=== PATIENT | male | born 1995 | race Caucasian/White ===

== ENCOUNTER 2019-08-02 07:58 | Emergency (ER) | payer OTHER ==
[~2019-08-02] VITALS: Ht 172.7 cm; Wt 113.4 kg
== END 2019-08-02 08:41 | disposition home or self-care (01) ==
LOC: ED 07:58
DX: S93.402A Sprain of unspecified ligament of left ankle, initial encounter (principal); F17.200 Nicotine dependence, unspecified, uncomplicated; X58.XXXA Exposure to other specified factors, initial encounter
CPT/HCPCS: 73610; 99283

== ENCOUNTER 2023-09-21 14:43 | Emergency (ER) | payer OTHER ==
[~2023-09-21] VITALS: Ht 172.7 cm; Wt 121.8 kg
[2023-09-21 16:09] LABS: INFLUENZA B NAA NEGATIVE (NEGATIVE); RESPIRATORY SYNCYTIAL VIR NAA NEGATIVE (NEGATIVE)
[2023-09-21] MEDS ORDERED: DIPHENOXYLATE/ATROPINE 1 EA TAB PO ONE ×2 (19:30→20:15)
[2023-09-21] MEDS ORDERED: ondansetron HCL 4 MG/2 ML VIAL IV ONE (19:30)
[2023-09-21] MEDS ORDERED: LACTATED RINGER'S 1,000 ML IV ONE (19:30)
[2023-09-21] MEDS ORDERED: ondansetron HCL 4 MG/2 ML VIAL ONE (19:58)
[2023-09-21] MEDS ORDERED: DIPHENOXYLATE/ATROPINE 1 EA TAB ONE (19:58)
[2023-09-21 20:01] LABS: HEMOGLOBIN 15.8 g/dL (12.0-18.0); RDW 13.8 (10.5-15.0)
[2023-09-21 20:03] LABS: BASOPHILS 0.7 % (0-2); EOSINOPHILS 2.6 % (0-6); LYMPHOCYTES 26.9 % (24-44); MCH 28.2 (27-36); MCHC 34.4 g/dl (30-36); MONOCYTES 8.5 % (0-12); NEUTROPHILS 61.3 % (39-80); PLATELET COUNT 222 K/uL (140-440)
[2023-09-21 20:44] LABS: ALBUMIN/GLOBULIN RATIO 0.93 (1.1-2.4); ANION GAP 18.6 (7-21); BUN/CREATININE RATIO 17.89 (6.0-28.6); CALCIUM 8.8 mg/dL (8.5-10.1); CREATININE, SERUM 0.95 mg/dL (0.70-1.30); POTASSIUM 3.6 mmol/L (3.5-5.1); PROTEIN, TOTAL 8.3 g/dL (6.4-8.2)
[2023-09-21] MEDS ORDERED: CYCLOBENZAPRINE10 MG PO (21:43)
[2023-09-21] MEDS ORDERED: ONDANSETRON ODT8 MG PO (21:49)
[2023-09-21] MEDS ORDERED: LOMOTIL TABLET1 EACH PO (21:49)
[2023-09-21] MEDS ORDERED: ONDANSETRON 4 MG HOME.PACK SL ONE (22:00)
[2023-09-21 22:09] VITALS: BP 154/88
== END 2023-09-21 22:09 | disposition home or self-care (01) ==
LOC: ED 14:43
PROVIDERS: Emergency Medicine; Family Medicine
DX: B34.9 Viral infection, unspecified (principal); F17.200 Nicotine dependence, unspecified, uncomplicated
CPT/HCPCS: 36415; 71045; 80053; 85025; 87502; 96374; 99283-25; A9270; J2405; J7121; U0002